=== PATIENT | female | born 1980 | race Caucasian/White ===

== ENCOUNTER 2025-01-10 11:30 | Day surgery (SDC) | payer OTHER ==
[~2025-01-10] VITALS: Ht 180.3 cm; Wt 80.6 kg
[~2025-01-10 11:30] MED LIST: IBUP600T26 PO; LORTTAB2 PO; PHENYLEPHRINE 10% OPHTH SOL 5ML OD PRN; TYLE325T5 PO
[2025-01-10] MEDS: LIDOCAINE 3.5% 1 ML OPHTH TOPICAL GEL OU ONE (12:45)
[2025-01-10] MEDS: OFLOXACIN 0.3 % (OCUFLOX) OPTH SOL 5ML OD ONE (12:45)
[2025-01-10] MEDS: CYCLOPENTOLATE 1% OPHTH SOLN 2 ML BTL OD SCH (12:47)
[2025-01-10] MEDS: PHENYLEPHRINE 2.5% OPHTH SOL 2ML OD SCH (12:47)
[2025-01-10] MEDS: TROPICAMIDE 1% OPHTH SOLN 15ML OD SCH (12:47)
[2025-01-10] MEDS ORDERED: MIDAZOLAM INJ 2 MG/2 ML VIAL As Ordered ONE (12:52)
[2025-01-10] MEDS: LIDOCAINE 1% SDV 5 ML VIAL As Ordered ONE (13:36)
[2025-01-10] MEDS: CEFUROXIME 1 MG/0.1 ML INTRACAMERAL INJ As Ordered ONE (13:36)
[2025-01-10] MEDS: BSS IRRIG/VANCO(10MG)/TOBRA(5MG)/EPINEPH(1:1000-0.5CC)500ML BAG-ORONLY As Ordered ONE (13:37)
[2025-01-10 13:49] VITALS: BP 115/59; TEMP 98.1; O2SAT 100
== END 2025-01-10 14:03 | disposition home or self-care (01) ==
LOC: M SDC 11:30
PROVIDERS: ATTEND Ophthalmology
DX: H25.11 Age-related nuclear cataract, right eye (principal)
CPT/HCPCS: 66984; J0697; J2250; J3010; V2632